=== PATIENT | female | born 1965 | race American Indian/Alaskan Native ===

== ENCOUNTER 2021-05-27 16:12 | Emergency (ER) | payer MEDICAID ==
[~2021-05-27] VITALS: Ht 165.1 cm; Wt 97.7 kg
[2021-05-27] MEDS ORDERED: WELLBUTRIN XL150 MG PO (16:37)
[2021-05-27] MEDS ORDERED: LISINOPRIL10 MG PO (16:37)
[2021-05-27] MEDS ORDERED: OXYBUTYNIN CHLO10 MG PO (16:37)
[2021-05-27] MEDS ORDERED: ONDANSETRON ODT4 MG PO (19:14)
--- NOTE | 2021-05-30 18:12 | EKG ---
[facility] [address] [facility] [place] [address] Signed Sinus bradycardia with 1st degree AV block Minimal voltage criteria for LVH, may be normal variant Borderline ECG No previous ECGs available Confirmed by JAYDE CHANEY MD ([id number]) on 05/30/2021 6:12:26 PM Electronically Signed By: JAYDE CHANEY MD 05/30/211811 PATIENT NAME: PAULINA DEE CATHY Electrocardiogram DATE OF : 63 PHYSICIAN: JAYDE CHANEY MD REPORT #: [id number] REPORT IS CONFIDENTIAL AND NOT TO BE RELEASED WITHOUT AUTHORIZATION
== END 2021-05-27 19:28 | disposition home or self-care (01) ==
LOC: ED 16:12
DX: I10 Essential (primary) hypertension (principal); Z91.013 Allergy to seafood; Z79.899 Other long term (current) drug therapy
CPT/HCPCS: 80053; 83690; 84484; 85025; 93005; 93010; 99283-25; A9270

== ENCOUNTER 2022-01-25 08:54 | Emergency (ER) | payer MEDICAID ==
[~2022-01-25] VITALS: Ht 165.1 cm; Wt 95.5 kg
[~2022-01-25 08:54] MED LIST: K-TAB ER20 MEQ PO; LISINOPRIL10 MG PO; LISINOPRIL20 MG PO; ONDANSETRON ODT4 MG PO; OXYBUTYNIN CHLO10 MG PO; WELLBUTRIN XL150 MG PO
[2022-01-25] MEDS ORDERED: PREDNISONE20 MG PO (09:54)
== END 2022-01-25 10:19 | disposition home or self-care (01) ==
LOC: ED 08:54
DX: L27.0 Generalized skin eruption due to drugs and medicaments taken internally (principal); T45.2X5A Adverse effect of vitamins, initial encounter; I10 Essential (primary) hypertension; Z91.013 Allergy to seafood; Z79.899 Other long term (current) drug therapy
CPT/HCPCS: 99283; J7512

== ENCOUNTER 2022-06-16 11:43 | Emergency (ER) | payer OTHER ==
[~2022-06-16] VITALS: Ht 165.1 cm; Wt 95.3 kg
[~2022-06-16 11:43] MED LIST changes: +PREDNISONE20 MG PO
== END 2022-06-16 14:39 | disposition home or self-care (01) ==
LOC: ED 11:43
DX: S50.12XA Contusion of left forearm, initial encounter (principal); Z91.013 Allergy to seafood; Z79.899 Other long term (current) drug therapy; W22.8XXA Striking against or struck by other objects, initial encounter; I10 Essential (primary) hypertension
CPT/HCPCS: 73090; 99283-25; A9270

== ENCOUNTER 2022-06-18 09:05 | Inpatient (IN) | payer OTHER ==
[~2022-06-18] VITALS: Ht 165.1 cm; Wt 94.6 kg
--- OUTSIDE RECORDS SUMMARY | 2022-06-18 09:12 | XMS ---
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 - 2 Visits in 30 Days CARE PROVIDERS JUDAH KAUR Physician Donor Processor Current PHONE: Unknown YUSUF VAZQUEZ DENTAL Billposting Supervisor/Clinical Trials Assistant Current PHONE: [phone] THOMAS MCGINNIS Dental Hygienist Current PHONE: [phone] ADINA DELGADO [facility]/Center: Federally Qualified 08/10/2019-[facility] ([facility]) PHONE: [phone] ZACK JENNINGS Dentist: Circus Laborer Current PHONE: Unknown Venkat has no Care Guidelines for this patient. Yomi VISIT COUNT (12 MO.) [address] [facility] TOTAL 4 NOTE: Visits indicate total known visits. ED/UCC VISIT TRACKING (12 MO.) 06/18/2022 09:06 [facility] [place] TYPE: Emergency COMPLAINT: - CHEST/ABD PAIN 06/16/2022 11:44 [facility] [place] TYPE: Emergency COMPLAINT: - POSS BROKEN L ARM DIAGNOSES: - Striking against or struck by other objects, initial encounter - Essential (primary) hypertension - Contusion of left forearm, initial encounter - Other retirement (current) drug therapy - Allergy to seafood 01/25/2022 08:54 [facility] [place] TYPE: Emergency COMPLAINT: - SKIN PROBLEM DIAGNOSES: - Rash and other nonspecific skin eruption - Essential (primary) hypertension - Generalized skin eruption due to drugs and medicaments taken internally - Adverse effect of vitamins, initial encounter - 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
[2022-06-18] MEDS ORDERED: DIFLUCAN200 MG PO (11:18)
[2022-06-18] MEDS ORDERED: NYAMYC15 GM TOP (11:18)
[2022-06-18] MEDS ORDERED: BACTRIM DS TAB1 EACH PO (11:18)
--- NOTE | 2022-06-18 14:08 | EKG ---
[facility] [address] [place] [address] Signed Normal sinus rhythm Left axis deviation Abnormal ECG When compared with ECG of 27-MAY-2021 17:42, Vent. rate has increased BY 28 BPM Confirmed by Dang Patton MD () on 06/18/2022 2:07:54 PM Electronically Signed By: DANG PATTON MD 06/18/22 1408 PATIENT NAME: PAULINA DEE CATHY Electrocardiogram DATE OF : 63 PHYSICIAN: DANG PATTON MD REPORT #: [id number] REPORT IS CONFIDENTIAL AND NOT TO BE RELEASED WITHOUT AUTHORIZATION
--- NOTE | 2022-06-21 12:35 | HP ---
[facility] [address] [place], [place] [address] Signed ADMISSION DATE: 06/18/2022 REASON FOR ADMISSION: Acute calculous cholecystitis and dilated common bile duct. HISTORY: This 57-year-old woman is from a [place]. She is in this area, living in town and working for [employer]. Her daughter lives in the [place] area and is coming up to visit with her. She presented to the emergency room at approximately 9:30 this morning, evaluated by Dr. Narayan for complaints of epigastric pain that started 2 hours prior to her arrival in the ER. She had been feeling unwell for the preceding several days including having nausea and vomiting and low-grade diarrhea. She had no hematemesis or blood per rectum. Her pain was mostly in the epigastric, but also in the right posterior thorax area some degree. For evaluation in emergency room included lab studies, which showed hypokalemia with a potassium of 3.1 and a normal white count of 8.7. Liver enzymes with an alkaline phosphatase of 151, ALT 78, AST 139, and a total bilirubin of 1.1. Her electrolytes were normal other than the potassium. A gallbladder ultrasound was performed, which was considered to show a "hydropic gallbladder" containing bile and multiple calcified gallstones with mild gallbladder wall thickening, pericholecystic fluid and associated Gonsalez sign. She also was noted to have mild dilation of the extrahepatic common bile duct measuring 8.1 mm. Stones were not definitely seen in the common duct, however. Consideration was made by the radiologist for MRCP. The patient did have COVID testing, which was negative. MEDICATIONS: At admission include Bactrim DS one p.o. b.i.d. as well as fluconazole 200 mg p.o. daily and nystatin powder (topical)t.i.d. SOCIAL HISTORY: As previously noted. She lives alone. REVIEW OF SYSTEMS: She denies any shortness of breath or chest pain. She does have mild thirstiness. Her abdominal pain is mostly in the epigastric area, less so in the right subcostal area. Electronically Signed By: JOSE C CASTRO MD 06/21/22 1235 PATIENT NAME: PAULINA DEE HISTORY AND PHYSICAL DATE OF : 63 REPORT #: [id number] PHYSICIAN: JOSE C CASTRO MD PCP: [facility] REPORT IS CONFIDENTIAL AND NOT TO BE RELEASED WITHOUT AUTHORIZATION [facility] [address] [place], [place] [address] Signed PHYSICAL EXAMINATION: GENERAL: A pleasant [place] woman, who is obese. BMI is 34.7. Trachea is midline. Mucous membranes are reasonably moist. CHEST: Clear. HEART: Regular without murmur. ABDOMEN: Obese, but generally soft. There is no sign of abdominal incision. She does have epigastric tenderness and subcostal tenderness on the right, but no palpable mass. She has no ascites. EXTREMITIES: Show no clubbing, cyanosis, or edema. ASSESSMENT: The findings are consistent with acute calculous cholecystitis. This is mildly dilated common bile duct at 8.1 mm, could be indicative of a distal common duct obstruction quite obviously. This of course most likely would be related to gallstones (choledocholithiasis), however, that is not certain at this time. Her liver enzymes are only mildly elevated and bilirubin is normal. I have recommended direct admission to the hospital, IV antibiotic administration, anticipating laparoscopic cholecystectomy with cholangiogram tomorrow. She may require a common bile duct exploration. If possible, this would be done laparoscopically, though an open procedure may be required depending on the findings. We discussed the risks of bleeding, infection, bile duct injury, and need for other indicated procedures and of course failure to cure her problem. Understand these risks, she wishes to proceed. We will plan to do this tomorrow. In the meantime, we will get the patient a gallbladder booklet as well as prophylaxis against deep venous thrombosis and of course, potassium repletion will be important too. MD IVÁN Pineda/MODL /[id number] cc: Electronically Signed By: JOSE C CASTRO MD 06/21/22 1235 PATIENT NAME: PAULINA DEE HISTORY AND PHYSICAL DATE OF : 63 REPORT #: [id number] PHYSICIAN: JOSE C CASTRO MD PCP: [facility] REPORT IS CONFIDENTIAL AND NOT TO BE RELEASED WITHOUT AUTHORIZATION [facility] [address] [place], [place] [address] Signed Copies: ~ Electronically Signed By: JOSE C CASTRO MD 06/21/22 1235 PATIENT NAME: PAULINA DEE CATHY HISTORY AND PHYSICAL DATE OF : 63 REPORT #: [id number] PHYSICIAN: JOSE C CASTRO MD PCP: [facility] REPORT IS CONFIDENTIAL AND NOT TO BE RELEASED WITHOUT AUTHORIZATION
--- NOTE | 2022-06-21 12:35 | OR ---
[facility] [address] [place], [place] [address] Signed DATE OF OPERATION: 06/19/2022 SURGEON: Jose C Castro MD PREOPERATIVE DIAGNOSES: 1. Acute calculous cholecystitis with cholangitis. 2. Jaundice, probable common bile duct stones. POSTOPERATIVE DIAGNOSES: 1. Acute calculous cholecystitis with cholangitis. 2. Jaundice, probable common bile duct stones. PROCEDURE: 1. Laparoscopic cholecystectomy with laparoscopic transcystic duct exploration. 2. Incomplete extraction of gallstones on flexible choledochoscopy. 3. Open cholecystectomy and open common bile duct exploration, flexible choledochoscopy with extraction of stones. prolonged complicated and difficult 4. Completion T-tube cholangiogram. 5. Surgeon-directed fluoroscopy. ANESTHESIA: General endotracheal; Arian Tomas CRNA, and local 20 mL of 0.25% Marcaine with epinephrine. INDICATION: This 57-year-old woman from [place] presented to the hospital yesterday with significant right subcostal pain and epigastric pain. She underwent a gallbladder ultrasound, which showed multiple stones in the gallbladder as well as a dilated common duct to 8.1 mm. Liver enzymes were slightly elevated. She was admitted, given intravenous antibiotic Ancef and by today, her white count doubled to 19,000. Additionally, her liver enzymes increased including elevated bilirubin. She has been fluid resuscitated and is now to undergo cholecystectomy by laparoscopic approach and possible laparoscopic common bile duct exploration. She understands the risks of bleeding, infection, bile duct injury, need for open procedure, need for open common duct exploration. Understand that she wished to proceed. FINDINGS: Indeed the gallbladder was quite severely inflamed, edematous and distended. Decompression was required of dark bile from the gallbladder itself. Prompt Electronically Signed By: JOSE C CASTRO MD 06/21/22 1235 PATIENT NAME: PAULINA DEE OPERATIVE REPORT DATE OF : 63 REPORT #: [id number] PHYSICIAN: JOSE C CASTRO MD PCP: [facility] REPORT IS CONFIDENTIAL AND NOT TO BE RELEASED WITHOUT AUTHORIZATION [facility] [address] [place], [place] [address] Signed cholangiogram performed showed rather sizable distal common duct obstructive filling defect consistent with stones. Transcystic duct exploration by laparoscopic approach was undertaken showing impacted stone debris in the distal common duct. Extraction of the stone material with a basket was generally improving, but impaction of the stone at the cystic duct common duct junction without ability to release the stone or the basket itself prompted open procedure to fully clear the bile duct and remove the stone basket. Found on open choledochotomy was impacted stone debris in the distal duct. Ultimately, the duct was entirely cleared and completion T-tube cholangiogram showed good flow of contrast into the duodenum without sign of persistent obstructing stone. She tolerated the procedure well. DESCRIPTION OF PROCEDURE: The patient was brought to the operating room, given a general endotracheal anesthetic. Preoperative antibiotic Ancef had been given. Sequential compression device stockings used and heparin subcutaneously administered. A Warren catheter was placed on the possibility of a common duct exploration requirement. After the abdomen was prepared with a chlorhexidine solution and draped sterilely, an infraumbilical incision was made and using an open Meeta cannula technique, the abdomen was entered and pneumoperitoneum achieved to a level of 14 mmHg of carbon dioxide gas. Intra-abdominal inspection showed no sign of ascites or carcinomatosis. Liver appeared normal. The gallbladder was markedly tense and distended and quite markedly inflamed. Three additional trocars were placed in usual configuration in the subxiphoid, right midclavicular, and right anterior axillary line. The gallbladder was distended enough that it could not be grasped and therefore it was decompressed with a needle trocar device. Dark bile was noted upon aspiration. The puncture site was grasped and elevated cephalad. Using blunt electrocautery dissection, the very edematous and inflamed. The infundibulum of the gallbladder was dissected free, identifying well the cystic arterial arcade, which was doubly clipped and later divided and the cystic duct, which was somewhat dilated. A clip was applied across gallbladder cystic duct junction. A transverse choledochotomy was made in the cystic duct. There was no egress of bile. An Meneses type cholangiocatheter was used to provide intraoperative cholangiography. Free flow of contrast was noted in the biliary tree with a rather sizable obstructing mid to distal common duct filling defect consistent with stones. It was then elected to perform transcystic common duct exploration. A taut 5 mm trocar port was placed in the epigastric area in alignment with the cystic duct. Under direct visualization, a flexible wire was passed down the cystic duct and into the common duct and inflated to crossed into the duodenum. An ERCP balloon catheter was then passed over the wire and manipulated to the distal duct and the distal duct dilated. The balloon was decompressed and withdrawn and dilation undertaken of the Electronically Signed By: JOSE C CASTRO MD 06/21/22 1235 PATIENT NAME: PAULINA DEE OPERATIVE REPORT DATE OF : 63 REPORT #: [id number] PHYSICIAN: JOSE C CASTRO MD PCP: [facility] REPORT IS CONFIDENTIAL AND NOT TO BE RELEASED WITHOUT AUTHORIZATION [address] [place], [place] [address] Signed cystic duct and cystic duct common duct junction. The catheter and wire simply were then removed. Using a flexible ureteral nephroscope, the cystic duct was cannulated and evaluation undertaken. In the distal common bile duct was finding of impacted stone material. A stone basket through the choledochoscope, a portion of stone material was grasped and withdrawn. It was withdrawn in continuity with the scope. The scope was more fully withdrawn and the basket with enclosed stone was found to be "hung up" at the cystic duct common duct junction. Various manipulations would not allow it to easily withdraw. The stone basket could not offload the stone material and although it had been dilated and so forth was excessively large for the purpose at hand. Since the catheter could not be removed (basket would not disengage) and traction on the device clearly demonstrated an obstructing stone at the cystic duct common duct junction, conversion to open operation was deemed advisable. The stone basket was cut off and left in situ. The trocars removed under direct visualization showing no sign of bleeding. The infraumbilical fascial incision was reapproximated with interrupted 0 Vicryl suture. Plans were made for open cholecystectomy. A subcostal incision was made in the standard way connecting one of the epigastric port site incisions. Dissection was carried through the subcutaneous tissue of the abdominal wall. The external oblique was incised along its fibers as was the rectus sheath and the underlying rectus muscle divided with electrocautery. The posterior sheath and its attended peritoneum were incised with electrocautery as well. The abdomen was entered. A Bookwalter retractor with a small ring was used to provide exposure. Within the abdominal cavity, the wire was still somewhat stuck in the cystic duct common duct junction. A ring clamp was applied to the apex of the gallbladder and the gallbladder dissected free from the hepatic fossa without problem using electrocautery. The cystic duct was temporarily clipped since a wire emanating from it still, gallbladder excised and passed for pathology. Multiple round dark green gallstones were noted about 5-8 mm in size. With careful steady pressure the basket wire was steadily withdrawn and ultimately extracted without damage to the cystic duct or common duct junction. The basket device was fully intact. The cystic duct was triply clipped. The peritoneum overlying the dilated common duct was incised transversely as close to the duodenum as reasonable. Two stay sutures of 4-0 PDS were applied along the axial direction of the common bile duct. Common duct was incised with an 11 blade. Egress of clear bile was noted. Irrigation was undertaken. No stones were forthcoming in their withdrawal. Continuous irrigation was infused into the choledochotomy. Proximal examination showed Electronically Signed By: JOSE C CASTRO MD 06/21/22 1235 PATIENT NAME: PAULINA DEE CATHY OPERATIVE REPORT DATE OF : 63 REPORT #: [id number] PHYSICIAN: JOSE C CASTRO MD PCP: [facility] REPORT IS CONFIDENTIAL AND NOT TO BE RELEASED WITHOUT AUTHORIZATION [facility] [address] [place], [place] [address] Signed the biliary tree to be normal. Upon manipulating the scope distalward, there was quite obviously the impacted stone debris distally. Using a spiral stone basket, various manipulations were undertaken to extract the stone. It ultimately was removed in a piecemeal way and ultimately the common duct cleared. There was no apparent neoplasm. A #14 latex T-tube ([employer]) was cut to the appropriate configuration and placed in the choledochotomy. The choledochotomy was secured with running 4-0 PDS suture. Irrigation showed no sign of leakage. A T-tube cholangiogram was then performed, which showed easy flow of contrast in biliary tree with prompt emptying into the duodenum without any sign of filling defect or other abnormality. There was no leakage at the T-tube site. In one of the right-sided trocar 5 mm ports, a 7 mm flat Barry drain was placed in the subhepatic space and secured to the skin with nylon suture. The T-tube itself was brought out the inferior aspect of the subcostal incision through a separate stab incision and made very redundant, so as to avoid dislodgement. Irrigation was undertaken. There was no sign of other abnormality. The posterior sheath and its attended peritoneum reapproximated with running #1 PDS suture. The muscular layer and fascial and subcutaneous layer were irrigated with sterile saline. Anterior rectus sheath was similarly reapproximated with running 0 PDS suture. The skin was closed running subcuticular 3-0 Vicryl. Infraumbilical skin incision similarly closed. Steri-Strips were applied to all the trocar sites and the incision as well as an Acticoat dressing. The T-tube drain was attached to a bile bag. The Barry drain to bulb suction and secured to the skin with OpSite dressing. The patient was ultimately extubated and transferred to the recovery room in good condition and suffered no complications. Sponge, needle, and counts reported as correct x3. The operation was prolonged, complicated, and difficult. Blood loss was estimated less than 75 mL in aggregate. Sponge, needle, and instrument counts reported as correct x3. Jose C Castro MD Electronically Signed By: JOSE C CASTRO MD 06/21/22 1235 PATIENT NAME: PAULINA DEE CATHY OPERATIVE REPORT DATE OF : 63 REPORT #: [id number] PHYSICIAN: JOSE C CASTRO MD PCP: [facility] REPORT IS CONFIDENTIAL AND NOT TO BE RELEASED WITHOUT AUTHORIZATION [address] [address] Signed /[facility] /[id number] cc: Omar Narayan MD [facility] Copies: [facility] ~ Electronically Signed By: JOSE C CASTRO MD 06/21/22 1235 PATIENT NAME: PAULINA DEE CATHY OPERATIVE REPORT DATE OF : 63 REPORT #: [id number] PHYSICIAN: JOSE C CASTRO MD PCP: [facility] REPORT IS CONFIDENTIAL AND NOT TO BE RELEASED WITHOUT AUTHORIZATION
[2022-06-23] MEDS ORDERED: CIPROFLOXACIN500 MG PO (15:43)
[2022-06-23] MEDS ORDERED: IBUPROFEN600 MG PO (15:43)
[2022-06-23] MEDS ORDERED: ACETAMINOPHEN500 MG PO (15:44)
[2022-06-23] MEDS ORDERED: HYDROMORPHONE HC4 MG PO (15:44)
--- NOTE | 2022-06-25 08:10 | DS ---
[facility] [address] [place], [place] [address] Signed ADMISSION DATE: 06/20/2022 DISCHARGE DATE: 06/23/2022 REASON FOR ADMISSION: Acute cholecystitis and probable choledocholithiasis. HISTORY OF PRESENT ILLNESS: This 57-year-old woman is from [place], though lives in this area and works for [employer]. She presented to emergency room with severe abdominal pain in the epigastric area 2 hours after its onset. Evaluation included lab studies showing hypokalemia with a potassium of 3.1, white count of 8.7. Liver enzymes with alkaline phosphatase of 151, AST 139, ALT 70, and a total bilirubin of 1.1. Symptoms were suggestive of acute cholecystitis. A gallbladder ultrasound was performed which showed a hydropic gallbladder containing bile and multiple calcified gallstones and mild gallbladder wall thickening as well as pericholecystic fluid and an associated Gonsalez sign. She also had a mild dilation of the extrahepatic bile duct at 8.1 mm. She was admitted for further evaluation and care. The patient is on Bactrim and fluconazole and nystatin powder at time of admission it is noted. PERTINENT PHYSICAL EXAMINATION: GENERAL: Pleasant Tristanian woman who is obese. BMI 34.7. ABDOMEN: Obese but generally soft. There is no prior abdominal incision. She did have epigastric tenderness and subcostal tenderness on the right and no palpable mass. HOSPITAL COURSE: She was admitted with acute calculous cholecystitis based on clinical and radiographic findings and given intravenous antibiotic Ancef. Plans were made for cholecystectomy most likely the following day. Over the night despite antibiotics, IV fluids, and so forth, she had marked increase in her lab studies showing a white count that doubled to 19,000 and creatinine had elevated to 2.01 and bilirubin that elevated to 5.5. On June 19, 2022, she underwent laparoscopic evaluation showing a tense and inflamed gallbladder. A cholangiogram was performed laparoscopically which showed large common duct debris in the mid common bile duct with dilation of the common duct. A transcystic duct laparoscopic common duct exploration was undertaken; however, the basket could not withdraw the stones through the area of the cystic duct, common duct junction and on that basis, further treatment included conversion to open operation. This allowed for complete cholecystectomy as well as open cholangiogram through the common bile duct. The stones were densely impacted in the mid common bile duct and complete extraction was ultimately accomplished. A T-tube was placed as well as a backup drain. Electronically Signed By: JOSE C CASTRO MD 06/25/22 0810 PATIENT NAME: PAULINA DEE DISCHARGE SUMMARY DATE OF : 63 REPORT #: [id number] PHYSICIAN: JOSE C CASTRO MD PCP: [facility] REPORT IS CONFIDENTIAL AND NOT TO BE RELEASED WITHOUT AUTHORIZATION [address] [address] Signed Her recovery was straightforward following that. She had a regular diet the following day. No evidence of bile leak in the accessory drain and good drainage from the T-tube bile bag. She had progressive improvement, ultimately allowing for improvement of her lab studies including bilirubin to normal essentially. By day of discharge, the accessory drain was able to be removed as it showed no evidence of bile leak, and the T-tube was tolerated, clamped for at least 48 hours without any adverse clinical consequences or increase in liver enzymes. It is anticipated she will undergo T-tube cholangiogram as an outpatient in 4 weeks and have followup in the office thereafter to have T-tube removed. The T-tube has been secured well to the skin and the accessory drain has been removed. DISCHARGE MEDICATIONS: 1. Ciprofloxacin 500 mg tablets 1 tab pre T-tube cholangiogram which will be scheduled in the first week of July. 2. Ibuprofen 600 mg 1 p.o. q.6h as needed for pain, #60. 3. Dilaudid 4 mg tablets 1 p.o. q.6 hours as needed for pain, #12. 4. Tylenol 500 mg tablets 2 tablets p.o. q.6 hours as needed for pain, #60. 5. She will continue with the usual medication of bupropion (Wellbutrin XL) 150 mg p.o. daily, oxybutynin chloride 10 mg p.o. daily, and lisinopril 20 mg p.o. daily. She will see me after her T-tube cholangiogram, at which point the T-tube will be removed in the office setting. She is to be careful with instructions to avoid dislodgement of the T-tube in this time frame as would necessitate probable reoperation. DISCHARGE DIAGNOSES: 1. Severe acute calculus cholecystitis with cholangitis including multiple gallstones and multiple stones within common bile duct. 2. Status post laparoscopic cholecystectomy with laparoscopic common duct exploration with conversion to open operation including placement of T-tube, extraction of stones, and completion cholangiogram. 3. Obesity. 4. Shellfish allergy. 5. Distant history of right knee ACL operation and tubal ligation. 6. Hypertension. 7. Anxiety. Jose C Castro MD Electronically Signed By: JOSE C CASTRO MD 06/25/22 0810 PATIENT NAME: PAULINA DEE DISCHARGE SUMMARY DATE OF : 63 REPORT #: [id number] PHYSICIAN: JOSE C CASTRO MD PCP: [facility] REPORT IS CONFIDENTIAL AND NOT TO BE RELEASED WITHOUT AUTHORIZATION [address], [place] [address] Signed /CLEMENTINE /[id number] cc: Omar Narayan MD Copies: ~ Electronically Signed By: JOSE C CASTRO MD 06/25/22 0810 PATIENT NAME: PAULINA DEE CATHY DISCHARGE SUMMARY DATE OF : 63 REPORT #: [id number] PHYSICIAN: JOSE C CASTRO MD PCP: [facility] REPORT IS CONFIDENTIAL AND NOT TO BE RELEASED WITHOUT AUTHORIZATION
--- NOTE | 2022-06-26 20:40 | PATH ---
[facility] [address] [place], [place] [address] Signed SPECIMEN(S): A GALLBLADDER SPECIMEN SOURCE: A. GALLBLADDER CLINICAL HISTORY: Cholelithiasis FINAL PATHOLOGIC DIAGNOSIS: Gallbladder, cholecystectomy: - Chronic cholecystitis with foci of surface ulceration. - Cholelithiasis. - One reactive lymph node, negative for carcinoma (0/1). NRT:caw:C2NR MICROSCOPIC EXAMINATION: Histologic sections of all submitted blocks are examined by light microscopy. These findings, together with the gross examination, support the pathologic diagnosis. GROSS DESCRIPTION: The specimen, labeled "Melia Lopez," and designated on the requisition "gallbladder and stones," is received in formalin and consists of Specimen: Previously opened gallbladder. Dimensions: 9.1 x 3.5 x 2.0 cm. Serosa: Violaceous and smooth. Cystic Duct: Inked, probed patent. Calculi: Multiple orange and the black firm, fragmented stones, aggregate measurement 2.5 x 2.0 x 1.4 cm. Mucosa: Dusky pink and granular. Wall thickness: 0.4 cm. Lymph node: One pink possible pericystic lymph node is present measuring 0.9 cm in greatest dimension. Additional: None. [employer] sections are submitted in cassette (A1). FB (under the direct supervision of a pathologist) The Gross Description was prepared using a voice recognition system. The report was reviewed for accuracy; however, sound-alike word errors, addition and/or deletions may occur. If there is any question about this report, please contact Client Services. PATIENT NAME: PAULINA LOPEZ PATHOLOGY DATE OF : 63 REPORT #: [id number] PHYSICIAN: SONIA CASTRO PCP: [facility] REPORT IS CONFIDENTIAL AND NOT TO BE RELEASED WITHOUT AUTHORIZATION [facility] [address] [place] [id number] Signed PERFORMING LABORATORY: The technical component was performed by [employer], [address] [place] [address] (CLIA# [id number]). [facility], [address] [place] [address] (CLIA# [id number]). Diagnostician: Jessika Dillon MD Pathologist Electronically Signed 06/26/2022 Copies: ~ PATIENT NAME: PAULINA LOPEZ PATHOLOGY DATE OF : 63 REPORT #: [id number] PHYSICIAN: SONIA CASTRO PCP: [facility] REPORT IS CONFIDENTIAL AND NOT TO BE RELEASED WITHOUT AUTHORIZATION
== END 2022-06-23 16:45 | disposition home or self-care (01) | DRG 412 ==
LOC: ED 09:05 → MS 09:07
PROVIDERS: ADMIT Surgery; ATTEND Surgery
PROC: 0FJ44ZZ Inspection of Gallbladder, Percutaneous Endoscopic Approach (ICD-10-PCS; 2022-06-19)
PROC: 0FT40ZZ Resection of Gallbladder, Open Approach (ICD-10-PCS; principal; 2022-06-19 13:00)
PROC: 0FC94ZZ Extirpation of Matter from Common Bile Duct, Percutaneous Endoscopic Approach (ICD-10-PCS; 2022-06-19 13:00)
DX: K80.42 Calculus of bile duct with acute cholecystitis without obstruction (principal); K82.1 Hydrops of gallbladder; Z20.822 Contact with and (suspected) exposure to COVID-19; I10 Essential (primary) hypertension; F41.9 Anxiety disorder, unspecified; E66.9 Obesity, unspecified; Z68.34 Body mass index [BMI] 34.0-34.9, adult; Z98.51 Tubal ligation status; Z98.890 Other specified postprocedural states; Z91.013 Allergy to seafood; Z79.899 Other long term (current) drug therapy
CPT/HCPCS: 00790; 36415; 74300; 76705; 80053; 81001; 83690; 85025; 88304; 93005; 93010; 94762; 96361; 96365; 96366; 96367; 96372; 96374; 96375; 96376; 99285-25; A9270; C9803; G0378; J0330; J0690; J1170; J1644; J1885; J2001; J2185; J2250; J2270; J2370; J2405; J2550; J2704; J2765; J3010; J3480; J7030; J7040; J7060; J7121; Q9967; U0003

== ENCOUNTER 2022-11-09 14:01 | Emergency (ER) | payer OTHER ==
[~2022-11-09 14:01] MED LIST changes: +ACETAMINOPHEN500 MG PO; +BACTRIM DS TAB1 EACH PO; +CIPROFLOXACIN500 MG PO; +DIFLUCAN200 MG PO; +HYDROMORPHONE HC4 MG PO; +IBUPROFEN600 MG PO; +NYAMYC15 GM TOP
[2022-11-09] MEDS ORDERED: CIPRO500 MG PO (16:18)
[2022-11-09] MEDS ORDERED: METRONIDAZOLE500 MG PO (16:18)
== END 2022-11-09 16:39 | disposition home or self-care (01) ==
LOC: ED 14:01
DX: A09 Infectious gastroenteritis and colitis, unspecified (principal); I10 Essential (primary) hypertension; Z91.013 Allergy to seafood; Z79.899 Other long term (current) drug therapy
CPT/HCPCS: 36415; 74177; 80053; 83690; 85025; 99284-25; Q9967

== ENCOUNTER 2023-05-15 21:31 | Emergency (ER) | payer OTHER ==
[~2023-05-15] VITALS: Ht 165.1 cm; Wt 91.0 kg
[~2023-05-15 21:31] MED LIST changes: +CIPRO500 MG PO; +METRONIDAZOLE500 MG PO
[2023-05-15 22:08] LABS: BASOPHILS 0.3 % (0-2); EOSINOPHILS 0.9 % (0-6); LYMPHOCYTES 10.7 % (24-44); MCH 28.8 (27-36); MCHC 33.3 g/dl (30-36); MCV 86.4 fl (81-99); MONOCYTES 2.3 % (0-12); NEUTROPHILS 85.8 % (39-80); PLATELET COUNT 304 K/uL (140-440); RBC 5.56 M/ul (4.3-5.7); RDW 13.7 (10.5-15.0)
[2023-05-15 22:18] LABS: ALBUMIN 4.1 g/dL (3.4-5.0); ALBUMIN/GLOBULIN RATIO 0.87 (1.1-2.4); ANION GAP 13.2 (7-21); BILIRUBIN, TOTAL 1.3 ng/dL (0.2-1.0); BUN/CREATININE RATIO 13.39 (6.0-28.6); CALCIUM 9.9 mg/dL (8.5-10.1); CREATININE, SERUM 1.12 mg/dL (0.55-1.02); POTASSIUM 3.2 mmol/L (3.5-5.1); PROTEIN, TOTAL 8.8 g/dL (6.4-8.2)
[2023-05-15 22:56] LABS: BILIRUBIN, URINE NEGATIVE (negative); BLOOD/HGB, URINE NEGATIVE (Negative); KETONE, URINE NEGATIVE (Negative); LEUK ESTERASE, URINE NEGATIVE (negative); NITRITE, URINE NEGATIVE (negative)
[2023-05-15 23:52] LABS: ALCOHOL, MEDICAL <3 ng/dL (<3)
[2023-05-16 01:11] VITALS: BP 148/74
[2023-05-16 02:12] LABS: CHOLESTEROL 253 mg/dL (<200); CHOLESTEROL/HDL RATIO 4.8; HDL CHOLESTEROL 53 (40-60); LDL CHOLESTEROL 177 mg/dL (< 129); TRIGLYCERIDES 116 ng/dL (<150); VLDL CHOLESTEROL 23
[2023-05-17 12:44] LABS: HEPATITIS A ANTIBODY, IGM Negative (Negative); HEPATITIS B CORE ANTIBODY, IGM Negative (Negative); HEPATITIS B SURFACE ANTIGEN Negative (Negative); HEPATITIS C AB CIA INTERP Negative (Negative); HEPATITIS C ANTIBODY CIA INDEX 0.06 IV (())
== END 2023-05-16 01:12 | disposition home or self-care (01) ==
LOC: ED 21:31
PROVIDERS: Internal Medicine
DX: R10.13 Epigastric pain (principal); R74.01 Elevation of levels of liver transaminase levels; I10 Essential (primary) hypertension; F41.9 Anxiety disorder, unspecified; Z91.013 Allergy to seafood; Z79.899 Other long term (current) drug therapy
CPT/HCPCS: 36415; 71260; 74177; 80053; 80061; 80074; 81003; 83690; 83735; 85025; 85379; 86704; 86803; 96361; 99284-25; G0480; J1885; J2405; J7121; Q9967

== ENCOUNTER 2023-06-04 16:35 | Emergency (ER) | payer OTHER ==
[~2023-06-04] VITALS: Ht 165.1 cm; Wt 88.4 kg
--- OUTSIDE RECORDS SUMMARY | 2023-06-04 16:37 | XMS ---
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 Federally Qualified 08/10/2019-[facility] ([facility]) PHONE: [phone] GEOVANY VASQUEZ Financial Aid Coordinator Current PHONE: Unknown THOMAS MCGINNIS Dental Hygienist Current PHONE: [phone] ZACK JENNINGS Dentist: Billet Straightener Current PHONE: Unknown Venkat has no Care Guidelines for this patient. Yomi VISIT COUNT (12 MO.) 5 SOFIA Mccurdy TOTAL 5 NOTE: Visits indicate total known visits. ED/UCC VISIT TRACKING (12 MO.) 06/04/2023 16:35 [facility] [place] TYPE: Emergency COMPLAINT: - DIZZINESS 05/15/2023 21:32 [facility] [place] TYPE: Emergency COMPLAINT: - ABD PAIN DIAGNOSES: - Allergy to seafood - Anxiety disorder, unspecified - Elevation of levels of liver transaminase levels - Epigastric pain - Essential (primary) hypertension - Other long term care phlebotomist (current) drug therapy 11/09/2022 14:02 [facility] [place] TYPE: Emergency COMPLAINT: - ABDOMINAL PAIN/RECTAL BLEEDING DIAGNOSES: - Allergy to seafood - Essential (primary) hypertension - Infectious gastroenteritis and colitis, unspecified - Lower abdominal pain, unspecified - Other long term care phlebotomist (current) drug therapy 06/18/2022 09:06 [facility] [place] TYPE: Emergency COMPLAINT: - CHEST/ABD PAIN 06/16/2022 11:44 [facility] [place] TYPE: Emergency COMPLAINT: - POSS BROKEN L ARM DIAGNOSES: - Allergy to seafood - Contusion of left forearm, initial encounter - Essential (primary) hypertension - Other senior living (current) drug therapy - Striking against or struck by other objects, initial encounter INPATIENT VISIT TRACKING (12 MO.) 06/20/2022 14:[address] [facility] [place] TYPE: Medical Surgical COMPLAINT: - OPEN THERESA DIAGNOSES: - Allergy to seafood - Allergy to seafood - Anxiety disorder, unspecified - Anxiety disorder, unspecified - Body mass index [BMI] 34.0-34.9, adult - Calculus of bile duct with acute cholecystitis without obstruction - Calculus of bile duct with acute cholecystitis without obstruction - Calculus of gallbladder without cholecystitis without obstruction - Contact with and (suspected) exposure to COVID-19 - Contact with and (suspected) exposure to COVID-19 - Essential (primary) hypertension - Essential (primary) hypertension - Hydrops of gallbladder - Obesity, unspecified - Other long term care phlebotomist (current) drug therapy - Other senior living (current) drug therapy - Other specified postprocedural states - Other specified postprocedural states - Tubal ligation status - Tubal ligation status [email or web address]
[2023-06-04 18:50] LABS: BASOPHILS 0.7 % (0-2); EOSINOPHILS 0.9 % (0-6); HEMATOCRIT 41.3 % (35.0-50.0); HEMOGLOBIN 13.7 g/dL (12.0-18.0); LYMPHOCYTES 25.6 % (24-44); MCH 29.2 (27-36); MCHC 33.2 g/dl (30-36); MONOCYTES 5.5 % (0-12); NEUTROPHILS 67.3 % (39-80); PLATELET COUNT 398 K/uL (140-440); RBC 4.69 M/ul (4.3-5.7); RDW 13.8 (10.5-15.0)
[2023-06-04 18:58] LABS: ALBUMIN 3.3 g/dL (3.4-5.0); ALBUMIN/GLOBULIN RATIO 0.73 (1.1-2.4); ANION GAP 12.6 (7-21); BILIRUBIN, TOTAL 1.1 ng/dL (0.2-1.0); BUN/CREATININE RATIO 18.64 (6.0-28.6); CALCIUM 9.5 mg/dL (8.5-10.1); CREATININE, SERUM 1.18 mg/dL (0.55-1.02); POTASSIUM 3.6 mmol/L (3.5-5.1); PROTEIN, TOTAL 7.8 g/dL (6.4-8.2)
[2023-06-04 20:50] LABS: BILIRUBIN, URINE NEGATIVE (negative); BLOOD/HGB, URINE NEGATIVE (Negative); KETONE, URINE NEGATIVE (Negative); LEUK ESTERASE, URINE NEGATIVE (negative); NITRITE, URINE NEGATIVE (negative); PH, URINE 5.5 (5-7)
[2023-06-04 21:22] VITALS: BP 151/76
== END 2023-06-04 21:22 | disposition home or self-care (01) ==
LOC: ED 16:35
PROVIDERS: Emergency Medicine; Internal Medicine
DX: E86.0 Dehydration (principal); B34.9 Viral infection, unspecified; R79.89 Other specified abnormal findings of blood chemistry; I10 Essential (primary) hypertension; Z91.013 Allergy to seafood; Z79.899 Other long term (current) drug therapy
CPT/HCPCS: 36415; 70450; 80053; 81003; 85025; 99284-25; J7121

== ENCOUNTER 2023-08-13 08:35 | Day surgery (SDC) | payer OTHER ==
[2023-07-27 16:22] VITALS: BP 146/91
[~2023-08-13] VITALS: Ht 165.1 cm; Wt 84.5 kg
[2023-08-13 08:54] VITALS: BP 136/88
[2023-08-13] MEDS ORDERED: OMEPRAZOLE20 MG PO (08:59)
--- NOTE | 2023-08-13 09:10 | NUR ---
STATES ATE [address] ALEJANDRE AWARE INSTRUCTED PT CAN GO AHEAD AND IF NOT CLEAR MAY HAVE TO COME BACK AGAIN. STATES SHE WANTS TO PROCEDE. STATES TOOK PREP PRIOR TO EATING AND HAS CLEAR STOOL NOW.
[2023-08-13 11:01] VITALS: BP 120/96
--- NOTE | 2023-08-13 12:24 | NUR ---
08/13/23 1224 Jayjay,Sasha 1040 PT ARRIVED TO PACU ON RA, PT ASLEEP AND RESP EVEN AND UNLABORED. 1042 SPANISH SPEAKING BABYSITTER INCREASED HOB AND PT WOKE AND SAT UP IN BED. PT REORIENTED TO PACU AND PT DENIES CONCERNS. PT RESTS BACK IN BED AND IS ENCOURAGED TO PASS GAS. 1053 MD AT BEDSIDE AND ANSWERED ALL QUESTIONS. 1120 PT SIPPING SODA AND DENIES CONCERNS. PT DRESSED HERSELF AND IS UP TO BATHROOM. 1128 DC INSTRUCTIONS GIVEN AND DC PAPERWORK GIVEN. PT DC VIA WC TO HER FRIEND.
--- NOTE | 2023-08-14 06:43 | OR ---
[facility] [address] [place], [place] [address] Signed DATE OF OPERATION: 08/13/2023 SURGEON: Stefanie Crystal MD PREOPERATIVE DIAGNOSES: 1. Epigastric abdominal pain. 2. Anorexia with weight loss. 3. Nausea and vomiting. 4. Gastroesophageal reflux disease. 5. Post cholecystectomy pain. 6. Screening. POSTOPERATIVE DIAGNOSES: 1. Moderate diffuse gastritis. 2. Distal antral polyps x2. 3. Sigmoid diverticulosis. 4. Poor colon prep. PROCEDURES: 1. EGD with CLOtest, snare polypectomy hot biopsy and biopsy of the antrum body and fundus of the stomach. 2. Sigmoidoscopy to 60 cm. ESTIMATED BLOOD LOSS: None. INDICATIONS: Paulina is a 58-year-old female, asked to see me for both upper and lower endoscopy. Initially, she was asked to see me for screening colonoscopy. However, she had been to the emergency room in November of last year. At that time, she had bacterial colitis, which responded nicely to the Cipro and Flagyl. The rectal bleeding and diarrhea have all resolved. She has a history of a laparoscopic converted to an open cholecystectomy with common bile duct exploration. The T-tube had been utilized. She had multiple stones taken out of her common bile duct. She is describing pain in the upper abdomen ever since. She thinks it is worse after she eats and it radiates through to her back. She said the last two months have really gotten much worse. She has lost 20 pounds as she is unable to eat much. She sometimes has nausea and vomiting. She describes some acid reflux. At one point, she had a bump in her liver function tests for reasons that are not clear. That is now subsided. Her hepatitis A, B, and C panel have all been negative. She talked about having COVID last year. She underwent a HIDA scan in Electronically Signed By: STEFANIE CRYSTAL MD 08/14/23 0643 PATIENT NAME: PAULINA DEE OPERATIVE REPORT DATE OF : 63 REPORT #: [id number] PHYSICIAN: STEFANIE CRYSTAL MD PCP: [facility] REPORT IS CONFIDENTIAL AND NOT TO BE RELEASED WITHOUT AUTHORIZATION [facility] [address] [place], [place] [address] Signed June 2023. This was unremarkable including the liver and the common bile duct. She then had a MRI on 07/20/2023, which was reviewed today and it is also negative. She told me she is raised in foster care and therefore has no knowledge of her biologic family. She has been using omeprazole 20 mg once a day. In the office, I gave her pamphlets on both upper and lower endoscopy. We reviewed the nature of the two tests. We went over the risks including, but not limited to gas bloating, crampy abdominal pain, bleeding, perforation requiring surgery, and missed diagnosis. We also reviewed the written instructions for bowel prep line by line. For some reason, she decided to eat two tacos last night at about 7:00 p.m. She said it is hard for her to go whole day not eat. Also because of her significant obesity and other issues, we asked for and monitored anesthesia care with propofol infusion. That worked out quite well for Paulina this day. She had expressed understanding wished to proceed. DESCRIPTION OF PROCEDURE: Nicolasa was taken into our endoscopy suite and placed in the supine semi-recumbent position. The posterior oropharynx was anesthetized with lidocaine spray. A bite block was utilized for the case. The adult gastroscope was introduced and advanced under direct visualization of camera without difficulty. Her duodenum and pyloric channel were unremarkable. On the rim of the antrum as it enters into the pyloric channel, she had two polyps. One was fairly sizable probably 12 mm. We divided that with the snare and caught it with our basket for pathologic review. The other polyp was closer to 6 mm and we biopsied and destroyed it completely with hot biopsy forceps. There were no ulcers in the pyloric bulb nor the stomach. The stomach appears to have diffuse erythematous changes. We took a biopsy out of the antrum body and fundus of the stomach for pathologic review. We took an additional biopsy of the antrum for CLOtest. Upon retroflexion of scope I really cannot see an obvious hiatal hernia. The scope was withdrawn up through the area of the GE junction, which was compliant without stricture. There was no gastric or esophageal varices. Her distal middle and upper esophagus were unremarkable. Her vocal cords and the arytenoids are also unremarkable. After this, the gas was suctioned out and the gastroscope removed. Paulina tolerated the upper endoscopy quite well. Paulina was rotated into the left lateral decubitus position. A digital rectal exam was performed and this was unremarkable. No external hemorrhoids. Good sphincter tone. No masses. The adult colonoscope was introduced. We immediately encountered heavy liquid somewhat particulate stool matter. We carefully advanced the scope up to about 60 cm. Even this was quite difficult. We could see a few diverticula through the heavy liquid stool. We finally got to where we simply could not pass the scope any further. We had lost visualization and simply it was not safe. The scope was then slowly withdrawn. The gas was suctioned out and the scope was removed. Paulina tolerated the sigmoidoscopy quite well. Electronically Signed By: STEFANIE CRYSTAL MD 08/14/23 0643 PATIENT NAME: PAULINA DEE CATHY OPERATIVE REPORT DATE OF : 63 REPORT #: [id number] PHYSICIAN: STEFANIE CRYSTAL MD PCP: [facility] REPORT IS CONFIDENTIAL AND NOT TO BE RELEASED WITHOUT AUTHORIZATION [facility] [address], [place] [address] Signed RECOMMENDATIONS: I will see Paulina back in my office in 7 to 14 days to review her results. She will need to reschedule her colonoscopy with a better bowel prep. We will review the pathology results for the stomach. MD ABIB Pate/CLEMENTINEL /[id number] cc: Stefanie Crystal MD [facility] Copies: STEFANIE CRYSTAL MD ~ Electronically Signed By: STEFANIE CRYSTAL MD 08/14/23 0643 PATIENT NAME: LEILAPAULINA CATHY OPERATIVE REPORT DATE OF : 63 REPORT #: [id number] PHYSICIAN: STEFANIE CRYSTAL MD PCP: [facility] REPORT IS CONFIDENTIAL AND NOT TO BE RELEASED WITHOUT AUTHORIZATION
--- NOTE | 2023-08-20 16:23 | PATH ---
[facility] [address] [place], [place] [address] Signed SPECIMEN(S): A ANTRUM/PYLORUS COLON POLYP SPECIMEN(S): B ANTRUM/PYLORUS COLON BIOPSY SPECIMEN(S): C FUNDUS BIOPSY SPECIMEN(S): D STOMACH BODY BIOPSY SPECIMEN SOURCE: A. ANTRUM/PYLORUS COLON POLYP B. ANTRUM/PYLORUS COLON BIOPSY C. FUNDUS BIOPSY D. STOMACH BODY BIOPSY CLINICAL HISTORY: EGD preop: GERD, N/V, post-cholecystectomy, pain. EGD postop: Gastritis, gastric polyp. Colon preop: Screening. Colon preop: Sigmoidoscopy, poor prep, diverticulosis. FINAL PATHOLOGIC DIAGNOSIS: A. Antrum/pylorus polyp: - Inflamed hyperplastic polyp. - Negative for evidence of Helicobacter organisms on immunostained sections. B. Antrum/pylorus biopsy: - Benign gastric-type mucosa and proximal small bowel epithelium with mild mucosal chronic inflammation. - Negative for evidence of Helicobacter organisms on routine HE-stained sections. C. Fundus biopsy: - Diffuse superficial chronic gastritis with focal intestinal metaplasia. - A Helicobacter pylori immunostain is negative for organisms. D. Stomach body biopsy: - Diffuse superficial chronic gastritis with focal intestinal metaplasia. - A Helicobacter pylori immunostain is negative for organisms. MICROSCOPIC EXAMINATION: Histologic sections of all submitted blocks are examined by light microscopy. These findings, together with the gross examination, support the pathologic diagnosis. A1: A Helicobacter pylori immunostain is performed with appropriate positive and negative controls on block A1 and is negative for organisms. A cytokeratin AE1/AE3 immunostain is performed with appropriate controls and is negative for occult carcinoma. C1, D1: A Helicobacter pylori immunostain is performed with appropriate PATIENT NAME: PAULINA LOPEZ PATHOLOGY DATE OF : 63 REPORT #: [id number] PHYSICIAN: SONIA PATHOLOGY [facility] REPORT IS CONFIDENTIAL AND NOT TO BE RELEASED WITHOUT AUTHORIZATION [facility] [address] [place], [place] [address] Signed positive and negative controls and is negative for organisms. JVR:clv GROSS DESCRIPTION: A. The specimen, labeled and designated "John, Melia, " and designated on the requisition "stomach, antrum/pylorus polypectomy," is received in formalin and consists of one jimenes firm rough polypoid tissue fragment measuring 1.2 x 0.9 x 0.8 cm, the resection margin is inked blue, serially sectioned and submitted entirely in (A1). B. The specimen, labeled and designated "Melia Lopez, " and designated on the requisition "stomach, antrum/pylorus biopsy," is received in formalin and consists of one jimenes soft tissue fragment measuring 0.3 cm, the specimen is submitted entirely in (B1). C. The specimen, labeled and designated "Chatham, J, " and designated on the requisition "stomach, fundus biopsy," is received in formalin and consists of one jimenes soft tissue fragments measuring 0.3 cm, the specimen is submitted entirely in (C1). D. The specimen, labeled and designated "John, J, " and designated on the requisition "stomach, body biopsy," is received in formalin and consists of one jimenes soft tissue fragment measuring 0.3 cm, the specimen is submitted entirely in (D1). MMA (under the direct supervision of a pathologist) The Gross Description was prepared using a voice recognition system. The report was reviewed for accuracy; however, sound-alike word errors, addition and/or deletions may occur. If there is any question about this report, please contact Client Services. PERFORMING LABORATORY: Technical component was performed by [employer], [address] [place] [id number] (CLIA# [id number]). Professional interpretation was performed by [facility], [address] [place] [id number] (CLIA#: [id number]). Diagnostician: Gallito Ceballos MD Pathologist Electronically Signed 08/20/2023 Copies: PATIENT NAME: PAULINA LOPEZ CATHY PATHOLOGY DATE OF : 63 REPORT #: [id number] PHYSICIAN: SONIA CSATRO PCP: [facility] REPORT IS CONFIDENTIAL AND NOT TO BE RELEASED WITHOUT AUTHORIZATION [facility] [address] [place] [address] [place] [address] Signed ~ PATIENT NAME: PAULINA LOPEZ CATHY PATHOLOGY DATE OF : 63 REPORT #: [id number] PHYSICIAN: SONIA PATHOLOGY [facility] REPORT IS CONFIDENTIAL AND NOT TO BE RELEASED WITHOUT AUTHORIZATION
== END 2023-08-13 11:28 | disposition home or self-care (01) ==
LOC: DS 08:35 → OPS 08:35
PROVIDERS: ATTEND Colon & Rectal Surgery
PROC: 0DJD8ZZ Inspection of Lower Intestinal Tract, Via Natural or Artificial Opening Endoscopic (ICD-10-PCS; 2023-08-13)
PROC: 0DB68ZX Excision of Stomach, Via Natural or Artificial Opening Endoscopic, Diagnostic (ICD-10-PCS; principal; 2023-08-13 09:45)
PROC: 0DB78ZX Excision of Stomach, Pylorus, Via Natural or Artificial Opening Endoscopic, Diagnostic (ICD-10-PCS; 2023-08-13 09:45)
DX: Z12.11 Encounter for screening for malignant neoplasm of colon (principal); K57.30 Diverticulosis of large intestine without perforation or abscess without bleeding; K31.A13 Gastric intestinal metaplasia without dysplasia, involving the fundus; K31.7 Polyp of stomach and duodenum; K29.50 Unspecified chronic gastritis without bleeding; Z90.49 Acquired absence of other specified parts of digestive tract; Z87.19 Personal history of other diseases of the digestive system; K21.9 Gastro-esophageal reflux disease without esophagitis; E66.9 Obesity, unspecified; Z68.30 Body mass index [BMI] 30.0-30.9, adult; Z86.16 Personal history of COVID-19; Z79.899 Other long term (current) drug therapy
CPT/HCPCS: 43250; 43251; G0104; 00731; 36415; 87077; 88305; 88341; 88342; J2001; J2704; J3010; J7121

== ENCOUNTER 2023-09-10 07:50 | Day surgery (SDC) | payer OTHER ==
[~2023-09-10] VITALS: Ht 165.1 cm; Wt 84.8 kg
[~2023-09-10 07:50] MED LIST changes: +OMEPRAZOLE20 MG PO
[2023-09-10 08:07] VITALS: BP 112/64
[2023-09-10] MEDS ORDERED: OXYBUTYNIN CHLOR5 MG PO (08:11)
--- NOTE | 2023-09-10 09:42 | NUR ---
09/10/23 0942 Glenda Parsons 0823- PT ARRIVES TO PACU, LEFT LATERAL POSITION. OPA IN PLACE, MAINTAINING AIRWAY WITH NO JAW THRUST. O2 AT 10 L PER MASK ON ARRIVAL PER HAT BLOCKER, MOVED TO 6L PER MASK ON ARRIVAL. PT NON REACTIVE TO STIMULUS. INITAL BP 82/57, JOSE C HEBERT AT BEDSIDE, TAPPING AND SHOUTING AT PT FOR RESPONSE, THEN PERFORMED JAW THRUST- REPEAT BP 2 MINUTES LATER 109/62. PT REMAINS NON REACTIVE TO STIMULUS. ABD SOFT, NON SOFT, NON DISTENDED. LR INFUSING TO RH IV, ALL MONITORS IN PLACE. BREATHING EVEN, BUT SHALLOW.
--- NOTE | 2023-09-10 10:02 | OR ---
[facility] [address], [place] [address] Signed DATE OF OPERATION: 09/10/2023 SURGEON: Stefanie Crystal MD PREOPERATIVE DIAGNOSES: 1. Screening. 2. Diverticulosis. 3. Possible history of colitis. POSTOPERATIVE DIAGNOSES: 1. Recurrent moderate poor bowel prep. 2. Moderate pandiverticulosis. 3. Moderate internal hemorrhoids. PROCEDURE: Colonoscopy without biopsy. ESTIMATED BLOOD LOSS: None. INDICATIONS: Paulina is a 58-year-old female, asked to see me for colonoscopy. We have already helped her with an upper endoscopy, this is her third attempt at a colonoscopy. For some reason, she has had trouble with our bowel prep instructions we have used for over a decade. Last time, she ate tacos in the evening after the prep and this time she decided to eat in the morning and did not start clear liquids until almost lunch time. However, she told me she felt like she was more clean on this occasion. We know she has some diverticulosis. Apparently, she has had some colitis in the past. There is no family history of colon cancer or polyps. In the office, I had given her a pamphlet on colonoscopy, we had gone over in detail. She understands there is risk including, but not limited to gas bloating, crampy abdominal pain, bleeding, perforation requiring surgery, and missed diagnosis. We also gone over the bowel prep with her including myself and the medical scientist. 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 She told me the day before that she had eaten breakfast. She understands that if she had brown liquid stool, she could take additional Gatorade with additional MiraLAX. She does use hydrocodone on a daily basis, therefore we have used monitored anesthesia care for her as we did today. She had expressed understanding and wished to proceed. DESCRIPTION OF PROCEDURE: Paulina was taken into our endoscopy suite and placed in the left lateral decubitus Electronically Signed By: STEFANIE CRYSTAL MD 09/10/23 1002 PATIENT NAME: PAULINA DEE OPERATIVE REPORT DATE OF : 63 REPORT #: [id number] PHYSICIAN: STEFANIE CRYSTAL MD PCP: [facility] REPORT IS CONFIDENTIAL AND NOT TO BE RELEASED WITHOUT AUTHORIZATION [facility] [address], [place] [address] Signed position. She was given monitored anesthesia care with propofol infusion per nurse order management specialist. Digital rectal exam was performed and this was unremarkable. She had no external hemorrhoids. Good sphincter tone. There were no masses. There was already some particulate brown stool on the index finger. The adult colonoscope had been introduced and advanced under direct visualization of camera. We had multiple areas of thick particulate liquid stool that we could not suction through the scope. We were able to get past on this occasion and into the cecum itself. We had used additional propofol and abdominal compression in order to get into her cecum. This was quite common, when there was significant stool still in the colon. We could see her appendiceal orifice and ileocecal valve. The scope then slowly withdrawn. We took pictures throughout for photodocumentation. However, we are having some trouble with our computer currently. We should be able to print those off here shortly. She does have diverticula throughout the colon. They were moderate in size, moderate in number and scattered about. We did not see any polyps. Upon retroflexion of scope, she has moderate internal hemorrhoids. After this, the gas was suctioned out, colonoscope removed. Paulina tolerated the procedure quite well. RECOMMENDATIONS: Paulina should consider coming back in 5 years for repeat colonoscopy. She will need to use a full gallon of polyethylene glycol. The patient will need monitored anesthesia care in the future as well. Stefanie Crystal MD ALB/MODL /[id number] cc: Patient Chart Stefanie Crystal MD [facility] Copies: STEFANIE CRYSTAL MD Electronically Signed By: STEFANIE CRYSTAL MD 09/10/23 1002 PATIENT NAME: PAULINA DEE [facility] OPERATIVE REPORT DATE OF : 63 REPORT #: [id number] PHYSICIAN: STEFANIE CRYSTAL MD PCP: [facility] REPORT IS CONFIDENTIAL AND NOT TO BE RELEASED WITHOUT AUTHORIZATION [facility] [address] [place] [address] [place], [place] [address] Signed [facility] ~ Electronically Signed By: STEFANIE CRYSTAL MD 09/10/23 1002 PATIENT NAME: PAULINA DEE [facility] OPERATIVE REPORT DATE OF : 63 REPORT #: [id number] PHYSICIAN: STEFANIE CRYSTAL MD PCP: [facility] REPORT IS CONFIDENTIAL AND NOT TO BE RELEASED WITHOUT AUTHORIZATION
[2023-09-10 10:31] VITALS: BP 100/72
== END 2023-09-10 11:00 | disposition home or self-care (01) ==
LOC: DS 07:50
PROVIDERS: ATTEND Colon & Rectal Surgery
PROC: 0DJD8ZZ Inspection of Lower Intestinal Tract, Via Natural or Artificial Opening Endoscopic (ICD-10-PCS; principal; 2023-09-10 09:00)
DX: Z12.11 Encounter for screening for malignant neoplasm of colon (principal); K57.30 Diverticulosis of large intestine without perforation or abscess without bleeding; K64.8 Other hemorrhoids; F43.10 Post-traumatic stress disorder, unspecified; I10 Essential (primary) hypertension; R63.4 Abnormal weight loss; Z87.19 Personal history of other diseases of the digestive system; E66.9 Obesity, unspecified; Z68.30 Body mass index [BMI] 30.0-30.9, adult; K21.9 Gastro-esophageal reflux disease without esophagitis; Z91.013 Allergy to seafood; Z79.899 Other long term (current) drug therapy
CPT/HCPCS: 00811; J2405; J2704; J7121